=== PATIENT | male | born 2005 | race Caucasian/White ===

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

== ENCOUNTER 2023-06-12 13:15 | Emergency (ER) | payer MEDICAID, SELFPAY ==
[2023-06-12 13:31] VITALS: BP 131/73; PULSE 82; RESP 17; TEMP 36.6; O2SAT 98
--- NOTE | 2023-06-12 14:00 | DI.RAD_ITS ---
Exam(s) XR CHEST 2V PA LATERAL EXAM: XR CHEST 2V PA LATERAL CLINICAL HISTORY: SOB, GERD. TECHNIQUE: 2D digital imaging was performed. COMPARISON: No exams were available for comparison FINDINGS: 2 views: Heart size is normal. The mediastinum is not widened. Lungs are clear. No infiltrates nor pleural effusions. IMPRESSION: No acute pulmonary findings. DATA REPOSITORY: RADIATION DOSE DELIVERED:
[2023-06-12 14:24] LABS: Abs Immature Grans 0.01 10^3/uL (0.0-0.06); Absolute Basophil Count 0.05 10^3/uL (0.0-0.2); Absolute Eosinophil Count 0.13 10^3/uL (0.0-0.7); Absolute Lymphocyte Count 2.35 10^3/uL (1.2-3.4); Absolute Monocyte Count 0.52 10^3/uL (0.1-0.8); Absolute Neutrophil Count 2.63 10^3/uL (1.2-6.7); Basophils % 0.9; Eosinophils % 2.3; HCT 45.8 % (40.0-50.0); HGB 15.4 g/dL (13.5-17.5); Immature Grans % 0.2; Lymphocytes % 41.3; MCH 29.7 pg (27.0-33.0); MCHC 33.6 % (32.0-36.0); MCV 88 fL (80-95); MPV 10.8 fL (8.0-11.0); Monocytes % 9.1; Neutrophils % 46.2; Platelet Count 232 10^3/uL (130-400); RBC 5.19 10^6/uL (4.36-5.78); RDW 12.3 % (11.8-14.1); RDW-SD 39.9 fL; WBC 5.69 10^3/uL (4.4-10.8)
--- NOTE | 2023-06-12 14:30 | DI.CT_ITS ---
Exam(s) CT ABDOMEN PELVIS W EXAM: CT ABDOMEN PELVIS W CLINICAL HISTORY: RUQ abd pain, Vomiting. TECHNIQUE: Imaging Protocol: Axial computed tomography images with coronal and sagittal reformatted images were created and reviewed CONTRAST MATERIAL: Intravenous: Omnipaque-350 100cc Oral: None COMPARISON: No exams were available for comparison FINDINGS: VISUALIZED LUNG BASES: No nodules nor pleural effusions evident. ABDOMEN: There is no ascites. LIVER: There are no focal hepatic lesions evident. No dilated intrahepatic ducts. There is mild per iportal edema. GALLBLADDER/BILIARY: No obvious gallbladder pathology. CBD is not dilated. PANCREAS: No evidence of pancreatic mass nor dilatation of the pancreatic duct. SPLEEN: Spleen is not enlarged. No obvious intrasplenic lesions. Splenic and portal veins are paten t. ADRENALS: There are no significant adrenal masses. KIDNEYS:No cysts evident. No solid renal masses. No calculi nor hydronephrosis.. ABDOMINAL AORTA: Abdominal aorta is not enlarged. LYMPH NODES:There is no retroperitoneal nor paraaortic adenopathy. ABDOMINAL WALL: No evidence of significant anterior abdominal wall nor inguinal hernia. GI: There is no evidence of bowel obstruction, free air, nor abscess. PELVIS: GI: No evidence of appendicitis.No evidence of sigmoid diverticulitis. LYMPH NODES: There is no intrapelvic nor inguinal adenopathy. REPRODUCTIVE: Prostate size normal. URINARY BLADDER: Moderately distended. No calculi nor obvious masses evident OSSEOUS: No fractures and no significant osseous lesions. IMPRESSION: 1. There is mild periportal edema in the liver. Correlation with appropriate blood work recommended. Liver size is normal and there is no steatosis nor discrete focal hepatic lesions nor dilatation of the biliary tree, both intra and extrahepatic. 2. Urinary bladder is moderately distended. Prostate size is normal. Called by myself to ER provider RADIATION DOSE DELIVERED: 549.48mGy.cm Total DLP DATA REPOSITORY: All CT scans at this facility are submitted to the National Radiology Data Registry (NRDR) Dose Index Registry (DIR) with the [employer] (A[employer]). RADIATION OPTIMIZATION: All CT scans at this facility use at least one of these dose optimization te chniques: automated exposure control; mA and/or kV adjustment per patient size (includes targeted exa ms where dose is matched to clinical indication); or iterative reconstruction.
[2023-06-12 14:38] LABS: ALT 24 U/L (16-63); AST 19 U/L (15-37); Albumin 4.8 g/dL (3.4-5.0); Alkaline Phosphatase 71 U/L (46-116); Anion Gap 8.4 mmol/L (3-11); BUN 7 mg/dL (7-18); Bilirubin, Total 0.7 mg/dL (0.2-1.0); CO2 29.6 mmol/L (21.0-32.0); CREATININE 0.8 mg/dL (0.70-1.30); Calcium 10.1 mg/dL (8.5-10.1); Chloride 103 mmol/L (98-107); Estimated GFR 130.74 (mL/min/1.73m2); Glucose 94 mg/dL (74-106); Lipase 31 U/L (16-77); Magnesium 2.1 mg/dL (1.8-2.4); Potassium 5.1 mmol/L (3.5-5.1); Sodium 141 mmol/L (136-145); Total Protein 7.9 g/dL (6.4-8.2)
--- NOTE | 2023-06-12 14:43 | W.ED.GENAD ---
HPI <Whit Matos NP - Last Filed: 06/13/23 08:41> General Mode of arrival: ambulatory. Date/Time Provider Initiated Documentation: 06/12/23 14:03. Limitations to Documentation: no limitations. Information obtained by: patient, RN notes reviewed and old records reviewed. HPI Narrative: 17-year-old male presents to the ER with a chief complaint of indigestion type symptoms, increased burping which turned into vomiting last night. He reports epigastric pain denies any diarrhea. He reports the pain and burping get worse after eating. He is able to tolerate bread. He also notes some weight loss. He does have some right upper quadrant abdominal tenderness with palpation and periumbilical tenderness. He has been taking an [id number] antacid with little to no relief. He denies any alcohol, does have a past medical history of anxiety and ADHD. No other significant past medical history or surgeries. Related Data Home Medications Medication Instructions Recorded Confirmed loratadine 10 mg tablet (Allergy 10 mg PO DAILY PRN allergy 04/18/21 06/12/23 Relief (loratadine)) symptoms #90 tabs methylphenidate HCl 27 mg 27 mg PO DAILY #30 tabs 08/09/21 06/12/23 tablet,extended release 24 hr (Concerta) polyethylene glycol 3350 17 17 g PO DAILY #510 grams 09/10/21 06/12/23 gram/dose oral powder (Miralax) famotidine 20 mg tablet (Pepcid) 20 mg PO BID #30 tabs 06/12/23 Previous Rx's Medication Instructions Recorded loratadine 10 mg tablet (Allergy 10 mg PO DAILY PRN allergy 04/18/21 Relief (loratadine)) symptoms #90 tabs methylphenidate HCl 27 mg 27 mg PO DAILY #30 tabs 08/09/21 tablet,extended release 24 hr (Concerta) polyethylene glycol 3350 17 17 g PO DAILY #510 grams 09/10/21 gram/dose oral powder (Miralax) famotidine 20 mg tablet (Pepcid) 20 mg PO BID #30 tabs 06/12/23 Allergies Allergy/AdvReac Type Severity Reaction Status Date / Time red dye AdvReac Unknown vomiting Verified 06/12/23 13:37 pollen Allergy Uncoded 06/12/23 13:37 General Stated Complaint: Abd Prob ROSA: 3 Review of Systems <Whit MatosMONTRELL - Last Filed: 06/13/23 08:41> All systems reviewed & are unremarkable except as noted in HPI and below Cardiovascular Cardiovascular: Reports dyspnea Respiratory Respiratory: Reports dyspnea Gastrointestinal Gastrointestinal: Reports as per HPI, Reports abdominal pain, Reports belching, Reports excessive flatus, Reports early satiety, Reports dyspepsia, Reports heartburn, Reports nausea and Reports vomiting Genitourinary Genitourinary: Denies urinary frequency Exam <Whit MatosMONTRELL - Last Filed: 06/13/23 08:41> Narrative Exam Narrative: Constitutional: Alert and oriented x3. Appears stated age. Thin body habitus. Head: Normocephalic, no trauma. Eyes: Pupils PERRL, Red reflex noted, EOM's intact. Eyelids symmetrical without lesions, discharge, or swelling. ENT: Bilateral TM's WNL, External ear normal to inspection, no mastoid TTP, swelling, or erythema, Nasal turbinates WNL, no nasal discharge. Normal dentition, Posterior pharynx WNL, no exudate. Chest: RRR, Normal S1, S2, distal pulses intact. Resp: Lungs clear to auscultation bilaterally, no wheezes, rales, or rhonchi. Abdomen: Soft, non-distended, Normoactive bowel sounds all 4 quads. Tender with palpation right upper quadrant and left upper quadrant and periumbilical. No masses no guarding no bloating. Musculoskeletal: Normal gait, 5/5 strength to all four extremities. Skin: No suspicious rashes or lesions. Capillary refill less than 2 sec. Neurologic: Cranial nerves II-XII intact. Alert and oriented x 3. Motor: No deficits noted. Hematologic/Lymphatic: No ecchymosis, no lymphadenopathy. Course <Whit MatosMONTRELL - Last Filed: 06/13/23 08:41> Vital Signs Vital signs: Vital Signs Temperature 36.6 C 06/12/23 13:31 Pulse 82 06/12/23 13:31 Respiratory Rate 17 06/12/23 13:31 Blood Pressure 131/73 06/12/23 13:31 Pulse Oximetry 98 06/12/23 13:31 Temperature 36.6 C 06/12/23 13:31 Temperature Source Temporal Artery Scan 06/12/23 13:31 Pulse 82 06/12/23 13:31 Respiratory Rate 17 06/12/23 13:31 Respiratory Effort Normal, Non-Labored 06/12/23 13:38 Blood Pressure 131/73 06/12/23 13:31 Blood Pressure Position Sitting 06/12/23 13:31 Pulse Oximetry 98 06/12/23 13:31 Oxygen Delivery Method Room Air 06/12/23 13:31 Oxygen Flow Rate 0 06/12/23 13:31 Pain Level 4 06/12/23 13:31 Lab/Test Results Lab/Test Results: Laboratory Tests Range/Units 06/12/23 06/12/23 14:17 14:17 WBC (4.4-10.8) 10^3/uL 5.69 RBC (4.36-5.78) 10^6/uL 5.19 Hgb (13.5-17.5) g/dL 15.4 Hct (40.0-50.0) % 45.8 MCV (80-95) fL 88 MCH (27.0-33.0) pg 29.7 MCHC (32.0-36.0) % 33.6 RDW (11.8-14.1) % 12.3 Plt Count (130-400) 10^3/uL 232 MPV (8.0-11.0) fL 10.8 Immature Gran % 0.2 Neutrophils % 46.2 Lymphocytes % 41.3 Monocytes % 9.1 Eosinophils % 2.3 Basophils % 0.9 Nucleated RBC % (0.0-0.3) % 0.0 Absolute Neutrophils (1.2-6.7) 10^3/uL 2.63 Absolute Lymphocytes (1.2-3.4) 10^3/uL 2.35 Absolute Monocytes (0.1-0.8) 10^3/uL 0.52 Absolute Eosinophils (0.0-0.7) 10^3/uL 0.13 Absolute Basophils (0.0-0.2) 10^3/uL 0.05 Sodium (136-145) mmol/L 141 Potassium (3.5-5.1) mmol/L 5.1 Chloride (98-107) mmol/L 103 Carbon Dioxide (21.0-32.0) mmol/L 29.6 Anion Gap (3-11) mmol/L 8.4 BUN (7-18) mg/dL 7 Creatinine (0.70-1.30) mg/dL 0.8 Est GFR (CKD-EPI 2020) (mL/min/1.73m2) 130.74 Glucose (74-106) mg/dL 94 Calcium (8.5-10.1) mg/dL 10.1 Magnesium (1.8-2.4) mg/dL 2.1 Total Bilirubin (0.2-1.0) mg/dL 0.7 AST (15-37) U/L 19 ALT (16-63) U/L 24 Alkaline Phosphatase (46-116) U/L 71 Total Protein (6.4-8.2) g/dL 7.9 Albumin (3.4-5.0) g/dL 4.8 Lipase Cancelled 31 Medical Decision Making <Whit Matos NP - Last Filed: 06/13/23 08:41> 17-year-old male presents to the ER with a chief complaint of indigestion type symptoms, increased burping which turned into vomiting last night. He reports epigastric pain denies any diarrhea. He reports the pain and burping get worse after eating. He is able to tolerate bread. He also notes some weight loss. He does have some right upper quadrant abdominal tenderness with palpation and periumbilical tenderness. He has been taking an [id number]-[id number] antacid with little to no relief. He denies any alcohol, does have a past medical history of anxiety and ADHD. No other significant past medical history or surgeries. Workup ordered including CBC CMP lipase. Liter normal saline, 4 mg of Zofran, 20 of Pepcid and GI cocktail ordered. CT abdomen pelvis ordered. Differential diagnose includes not limited to GERD, gastric ulcer, gallstones, cholecystitis however the lipase is within normal limits, gastroenteritis. Care is to be handed off to oncoming provider PIETRO Patino pending CT result. I do expect disposition to be discharged pending this. Clinical presentation is likely to be GERD or gastritis versus ulcer. Care accepted from pending CT, CT without a significant acute abnormality, encouraged to follow-up with primary care physician regarding CT findings of periportal edema which is likely nonspecific Patient able to tolerate p.o., reports marked improvement after GI cocktail Will patient patient on Pepcid, unfortunately secondary to allergies unable to take Carafate, he will take Prilosec Patient also mentions that he drinks 30 ounces of Monster energy drink daily, he is encouraged to stop doing this He is aware he will likely need endoscopy should his symptoms persist, but I suspect related to daily habits Lab Data Lab results reviewed: Yes I reviewed the patient's lab results. Labs: Laboratory Tests Range/Units 06/12/23 06/12/23 14:17 14:17 WBC (4.4-10.8) 10^3/uL 5.69 RBC (4.36-5.78) 10^6/uL 5.19 Hgb (13.5-17.5) g/dL 15.4 Hct (40.0-50.0) % 45.8 MCV (80-95) fL 88 MCH (27.0-33.0) pg 29.7 MCHC (32.0-36.0) % 33.6 RDW (11.8-14.1) % 12.3 Plt Count (130-400) 10^3/uL 232 MPV (8.0-11.0) fL 10.8 Immature Gran % 0.2 Neutrophils % 46.2 Lymphocytes % 41.3 Monocytes % 9.1 Eosinophils % 2.3 Basophils % 0.9 Nucleated RBC % (0.0-0.3) % 0.0 Absolute Neutrophils (1.2-6.7) 10^3/uL 2.63 Absolute Lymphocytes (1.2-3.4) 10^3/uL 2.35 Absolute Monocytes (0.1-0.8) 10^3/uL 0.52 Absolute Eosinophils (0.0-0.7) 10^3/uL 0.13 Absolute Basophils (0.0-0.2) 10^3/uL 0.05 Sodium (136-145) mmol/L 141 Potassium (3.5-5.1) mmol/L 5.1 Chloride (98-107) mmol/L 103 Carbon Dioxide (21.0-32.0) mmol/L 29.6 Anion Gap (3-11) mmol/L 8.4 BUN (7-18) mg/dL 7 Creatinine (0.70-1.30) mg/dL 0.8 Est GFR (CKD-EPI 2020) (mL/min/1.73m2) 130.74 Glucose (74-106) mg/dL 94 Calcium (8.5-10.1) mg/dL 10.1 Magnesium (1.8-2.4) mg/dL 2.1 Total Bilirubin (0.2-1.0) mg/dL 0.7 AST (15-37) U/L 19 ALT (16-63) U/L 24 Alkaline Phosphatase (46-116) U/L 71 Total Protein (6.4-8.2) g/dL 7.9 Albumin (3.4-5.0) g/dL 4.8 Lipase Cancelled 31 Quality:[facility] Health Related Social Needs: No Data to Display <PIETRO Patino - Last Filed: 06/12/23 19:53> 17-year-old male presents to the ER with a chief complaint of indigestion type symptoms, increased burping which turned into vomiting last night. He reports epigastric pain denies any diarrhea. He reports the pain and burping get worse after eating. He is able to tolerate bread. He also notes some weight loss. He does have some right upper quadrant abdominal tenderness with palpation and periumbilical tenderness. He has been taking an [id number]-[id number] antacid with little to no relief. He denies any alcohol, does have a past medical history of anxiety and ADHD. No other significant past medical history or surgeries. Workup ordered including CBC CMP lipase. Liter normal saline, 4 mg of Zofran, 20 of Pepcid and GI cocktail ordered. CT abdomen pelvis ordered. Differential diagnose includes not limited to GERD, gastric ulcer, gallstones, cholecystitis however the lipase is within normal limits, gastroenteritis. Care is to be handed off to oncoming provider PIETRO Patino pending CT result. I do expect disposition to be discharged pending this. Clinical presentation is unlikely to be GERD or gastritis versus ulcer. Care accepted from pending CT, CT without a significant acute abnormality, encouraged to follow-up with primary care physician regarding CT findings of periportal edema which is likely nonspecific Patient able to tolerate p.o., reports marked improvement after GI cocktail Will patient patient on Pepcid, unfortunately secondary to allergies unable to take Carafate, he will take Prilosec Patient also mentions that he drinks 30 ounces of Monster energy drink daily, he is encouraged to stop doing this He is aware he will likely need endoscopy should his symptoms persist, but I suspect related to daily habits [facility] <Whit Matos NP - Last Filed: 06/13/23 08:41> All Active Problems (Updated 06/12/23 @ 16:30 by PIETRO Patino) Constipation (Acute) Gastritis (Acute) Child in welfare custody (Chronic) living with older brother in his home dt dcf custody Cannabis use disorder, mild, abuse (Acute) Environmental and seasonal allergies (Acute) Hand laceration (Acute) Medical History Anxiety ADHD (attention deficit hyperactivity disorder) Surgical History No significant past surgical history Family History Father Hearing loss COPD (chronic obstructive pulmonary disease) Mother Back injuries Maternal Grandfather Heart disease Diabetes Brother No problems noted. Social History Smoking/Tobacco Use Status: Never Smoking risk assessment performed?: Yes Alcohol Intake: never Drug use: Occasionally Substance use type: marijuana Foster care: Yes (DCF involved 10/31/20) Housing: house Communication Needs: Corrective Lenses Education Level: high school Details: Fall 2020- Senior at [employer] Do you feel safe at home: Yes Do you feel safe in your relationship?: Yes Sign Out <Whit Matos NP - Last Filed: 06/13/23 08:41> Sign Out Data: Sign Out Comment: Pending CT result. DDX GERD, Gastritis, Ulcer. Given Zofran, Pepcid and GI cocktail here. Expected disposition DC home. Normal labs. Last updated by Whit Matos NP at 06/12/23 15:48 Discharge Plan Disposition Patient Disposition: Home Discharge Details Clinical Impression: Gastritis Primary Care Provider: Aleks Jalloh ED Provider: Maddi Salcido Home Meds and New Rx's Prescriptions: New famotidine [Pepcid] 20 mg tablet 20 mg PO BID Qty: 30 0RF Continued loratadine [Allergy Relief (loratadine)] 10 mg tablet 10 mg PO DAILY PRN (Reason: allergy symptoms) Qty: 90 2RF Rx Instructions: take one tablet once a day at bedtime methylphenidate HCl [Concerta] 27 mg tablet extended release 24hr 27 mg PO DAILY MDD 27 mg Qty: 30 0RF Rx Instructions: take one tablet once a day in the morning polyethylene glycol 3350 [Miralax] 17 gram/dose powder 17 g PO DAILY Qty: 510 2RF Rx Instructions: stir one capfull in 8 ounces of liquid daily - taper dose according to stool consistency Discharge Instructions Instructions: Gastritis (ED) Additional Instructions: take prilosec daily for the next two weeks take maalox as needed take pepcid daily for the next two weeks stop drinking energy drinks, this is likely the cause of your symptoms return earlier or follow-up with pcp in 2 weeks should you have persistent or worsening symptoms Referrals: Aleks Jalloh [facility]ER [Primary Care Provider] - 1 week Discharge Data Discharge Date/Time-TO BE ENTERED AT DEPARTURE: 06/12/23 16:37
[2023-06-12] MEDS: Normal Saline 1,000 ML 1000 ML IV (14:44)
[2023-06-12] MEDS: Ondansetron 4 MG/2 ML VIAL IVP (14:44)
[2023-06-12] MEDS: Mylanta Suspension 30 ML CUP PO (14:57)
[2023-06-12] MEDS: Famotidine 20 MG/2 ML VIAL IVP (14:57)
[2023-06-12] MEDS: Lidocaine 2% Viscous 1 ML Solution 15 ML PO (14:57)
[2023-06-12] MEDS: Omnipaque 350 MG/ML 100 ML BTL IJ (15:50)
[2023-06-12] MEDS: Normal Saline - Diluent 50 ML VIAL IJ (15:51)
== END 2023-06-12 16:37 | disposition home or self-care (01) ==
PROVIDERS: Registered Nurse Emergency; Emergency Provider Physician Assistant; PCP Nurse Practitioner Pediatrics
DX: K29.70 Gastritis, unspecified, without bleeding (principal); R11.2 Nausea with vomiting, unspecified
CPT/HCPCS: 80053; 83690; 96361; 96374; 96375; 99285; 71046; 74177; 81003; 83735; 85025; 99284; J2405; J3490